=== PATIENT | female | born 1950 | race Caucasian/White ===

== ENCOUNTER → 2016-11-25 | Outpatient (CLI) | payer OTHER ==
--- NOTE | 2016-11-25 14:36 | DIAGNOSTIC IMAGING REPORT ---
PROCEDURE: DEXA BONE DENSITY STUDY CLINICAL INDICATION: SCREENING COMPARISON: None. FINDINGS: LUMBAR SPINE: Bone mineral density 1.043 g/cm2, T score 0.0 normal LEFT HIP: Bone mineral density 0.998 g/cm2, T score 0.5 normal LEFT FEMORAL NECK: Bone mineral density 0.748 g/cm2, T score -0.9 normal FRACTURE RISK CALCULATION ( when applicable): 10-year fracture risk of a major osteoporotic fracture and of a hip fracture not reported because all T-scores at or above -1.0 (T score greater or equal to -1.0 to: NORMAL) (T score from -1.1 to -2.4: OSTEOPENIA) (T score ess than or equal to -2.5: OSTEOPOROSIS) IMPRESSION: 1. Normal spine hip and femoral neck.
== END ==
LOC: XR SRH 11-18 10:15
DX: Z13.820 Encounter for screening for osteoporosis (principal)